=== PATIENT | male | born 1975 | race African-American/Black ===

== ENCOUNTER 2019-05-09 08:57 | Emergency (ER) | payer SELFPAY ==
[~2019-05-09] VITALS: Ht 188 cm; Wt 79.0 kg
[2019-05-09 09:02] VITALS: BP 179/95
[2019-05-09] MEDS ORDERED: HYDR-3164 PO (09:23)
[2019-05-09] MEDS ORDERED: ORPH100T PO (09:23)
--- NOTE | 2019-05-09 09:24 | PHYS DOC ---
Adult General Chief Complaint Chief Complaint: BACK PAIN OR INJURY HPI HPI Patient is a 44 year old male who presents with Saturday was sitting on a panel that was 3ft tall when he fell off onto the concrete injuring his back. He complains of bilateral lower back pain with movement. He states he's been taking ibuprofen and using Epson bath salt soaks. Rates his pain a 8/10. Review of Systems Review of Systems Musculoskeletal: low back pain or denies joint pain [] All other systems were reviewed and found to be within normal limits, except as documented in this note. Allergies Allergies Allergies Coded Allergies Type Severity Reaction Last Updated Verified Penicillins Allergy Intermediate 05/09/19 Yes Physical Exam Physical Exam Constitutional: Well developed, well nourished, no acute distress, non-toxic appearance. [] HENT: Normocephalic, atraumatic, bilateral external ears normal, oropharynx moist, no oral exudates, nose normal. [] Eyes: PERRLA, EOMI, conjunctiva normal, no discharge. [] Neck: Normal range of motion, no tenderness, supple, no stridor. [] Cardiovascular:Heart rate regular rhythm, no murmur [] Lungs & Thorax: Bilateral breath sounds clear to auscultation [] Abdomen: Bowel sounds normal, soft, no tenderness, no masses, no pulsatile masses. [] Skin: Warm, dry, no erythema, no rash. [] Back: Bilateral lower tenderness, no CVA tenderness. [] Extremities: No tenderness, no cyanosis, no clubbing, ROM intact, no edema. [] Neurologic: Alert and oriented X 3, normal motor function, normal sensory function, no focal deficits noted. [] Psychologic: Affect normal, judgement normal, mood normal. [] Current Patient Data Vital Signs Vital Signs Date Time Temp Pulse Resp B/P (MAP) Pulse Ox O2 Delivery O2 Flow Rate FiO2 05/09/19 09:02 98.3 82 16 179/95 (123) 99 Room Air 98.3 EKG EKG [] Radiology/Procedures Radiology/Procedures [] Course & Med Decision Making Course & Med Decision Making Patient with tenderness with palpation to the bilateral lower back. There is no bruising, swelling or deformity. No focal spine in the only tenderness with palpation. Patient moves all extremities and rotate his back without complication. He denies any numbness or tingling, loss of bowel or bladder, saddle paresthesia, numbness or tingling, nausea, vomiting, abdominal pain, shortness of breath, chest pain, hitting his head, headache, dizziness, visual changes. Ambulatory with steady gait. He denies any hematuria. Dragon Disclaimer Dragon Disclaimer This electronic medical record was generated, in whole or in part, using a voice recognition dictation system. Departure Departure Impression: Primary Impression: Muscle strain Additional Impression: Back pain Disposition: 01 HOME, SELF-CARE Condition: STABLE Referrals: NO PCP (PCP) Patient Instructions: Back Pain, Adult, Contusion, [id number], Muscle Strain, [id number] Additional Instructions: Follow up with primary care provider. Take medications as prescribed. Also try a heating pad. Scripts Orphenadrine Citrate (ORPHENADRINE CITRATE) 100 Mg Tablet.er 1 TAB PO BID, #20 TAB Prov: MIRYAM SEXTON APRN 05/09/19 Hydrocodone/Apap 5-325 (NORCO 5-325 TABLET) 1 Each Tablet 1 TAB PO PRN Q6HRS PRN for PAIN, #10 TAB 0 Refills Prov: MIRYAM SEXTON APRN 05/09/19 Problem Qualifiers Additional Impression: Back pain Back pain location: low back pain Chronicity: acute Back pain laterality: bilateral Sciatica presence: without sciatica Qualified Codes: M54.5 - Low back pain MIRYAM SEXTON APRN May 09, 2019 09:23
[2019-05-09 09:50] LABS: BILIRUBIN,URINE NEGATIVE (NEG); CLARITY,URINE CLEAR; COLOR,URINE YELLOW; NITRITE,URINE NEGATIVE (NEG); PROTEIN,URINE NEGATIVE (NEG-TRACE)
[2019-05-09 10:02] LABS: BACTERIA,URINE 0 /HPF (0-FEW); RBC,URINE RARE /HPF (0-2); SQUAMOUS EPITHELIAL CELL,UR OCC /LPF
== END 2019-05-09 10:17 | disposition home or self-care (01) ==
LOC: ER 08:57
DX: S39.012A Strain of muscle, fascia and tendon of lower back, initial encounter (principal); R00.2 Palpitations; Z88.0 Allergy status to penicillin; W19.XXXA Unspecified fall, initial encounter; Y93.89 Activity, other specified; Y92.89 Other specified places as the place of occurrence of the external cause; Y99.8 Other external cause status
CPT/HCPCS: 81001; 87086; 99284